=== PATIENT | female | born 1990 | race African-American/Black ===

== ENCOUNTER 2024-07-29 03:25 | Inpatient (IN) | payer OTHER ==
[2024-07-29] MEDS: ELECTROLYTE-148 SOLN 1,000 ML IV SCH (04:20)
[2024-07-29 04:57] LABS: BASO % 0.1 % (0-2.0); EOS % 5.4 % (0-4.5); HEMATOCRIT 35.9 % (32.4-45.2); HEMOGLOBIN 11.8 GM/dL (10.7-15.3); LYMPH % 14.6 % (8-40); MCHC 32.8 g/dl (32.0-36.0); MEAN CELL VOLUME 82.4 fl (80-96); MEAN PLT VOLUME 9.8 fl (7.5-11.1); MONO % 9.6 % (3.8-10.2); NEUT % 70.3 % (42.8-82.8); PLATELET COUNT 193 10^3/uL (134-434); RBC 4.36 M/mm3 (3.60-5.2); RDW 14.5 % (11.6-15.6); WHITE BLOOD COUNT 10.6 K/mm3 (4.0-10.0)
[2024-07-29 05:05] VITALS: BMI 25.0
[2024-07-29 05:11] LABS: INR 0.99 (0.83-1.09); POTASSIUM 3.7 mmol/L (3.5-5.1); PROTHROMBIN TIME (PATIENT) 10.8 SEC (9.7-13.0)
[2024-07-29 05:13] LABS: ACTIVATED PTT 29.8 SECONDS (25.2-36.5); BLOOD UREA NITROGEN 8.3 mg/dL (7-18); CALCIUM 8.9 mg/dL (8.5-10.1)
[2024-07-29 05:17] LABS: CREATININE 0.6 mg/dL (0.55-1.3)
[2024-07-29] MEDS ORDERED: FENTANYL/BUPIVACAINE/NS/PF - PCEA - 50 ML DISP.SYRIN EP ONE (07:14)
[2024-07-29 07:20] VITALS: RESP 18
[2024-07-29] MEDS ORDERED: BUPIVACAINE HCL/PF 0.25% (2.5MG/ML) 10 ML VIAL ONE (07:48)
[2024-07-29] MEDS: FENTANYL/BUPIVACAINE/NS/PF - PCEA - 50 ML DISP.SYRIN EP SCH (08:10)
[2024-07-29] MEDS ORDERED: NALOXONE HCL 0.4 MG/ML VIAL IVPUSH PRN (08:24)
[2024-07-29] MEDS ORDERED: OXYTOCIN 20 UNITS in 0.9% NS 20 UNIT/1,000 ML INFUS.BAG IV ONE ×2 (10:14→12:40)
[2024-07-29] MEDS ORDERED: BISACODYL 10 MG SUPP.RECT RC PRN (10:39)
[2024-07-29] MEDS ORDERED: oxyCODONE HCL 5 MG TABLET PO PRN (10:39)
[2024-07-29] MEDS ORDERED: ACETAMINOPHEN 325 MG TABLET (FP) PO PRN (10:39)
[2024-07-29] MEDS ORDERED: METHYLERGONOVINE MALEATE 0.2 MG/1 ML AMP IM PRN (10:39)
[2024-07-29 11:36] LABS: POC NITRAZINE POS
[2024-07-29] MEDS: IBUPROFEN 600 MG TABLET (FP) PO PRN (20:20)
[2024-07-29] MEDS: OXYTOCIN 20 UNITS in 0.9% NS 20 UNIT/1,000 ML INFUS.BAG IV SCH (20:22)
[2024-07-29] MEDS: BENZOCAINE 20% 57 GM BOTTLE TP PRN (21:14)
[2024-07-29] MEDS: WITCH HAZEL 50% (TUCKS) 40 PAD/JAR PAD TP PRN (21:14)
[2024-07-29] MEDS: BENZOCAINE 28 GM HEMORRHOIDAL OINTMENT TP PRN (21:15)
[2024-07-30 08:08] LABS: BASO % 0.2 % (0-2.0); EOS % 4.2 % (0-4.5); HEMATOCRIT 31.6 % (32.4-45.2); HEMOGLOBIN 10.1 GM/dL (10.7-15.3); LYMPH % 14.9 % (8-40); MCH 26.6 pg (25.7-33.7); MEAN CELL VOLUME 83.2 fl (80-96); MEAN PLT VOLUME 9.7 fl (7.5-11.1); NEUT % 70.7 % (42.8-82.8); PLATELET COUNT 177 10^3/uL (134-434); RDW 14.4 % (11.6-15.6); WHITE BLOOD COUNT 13.3 K/mm3 (4.0-10.0)
[2024-07-30] MEDS: PRENATAL VITAMINS W/ FOLIC ACID TABLET (FP) PO SCH (09:03)
[2024-07-30] MEDS ORDERED: SENNOSIDES/DOCUSATE COMBO (SENNA PLUS) TABLET (UD) PO PRN (22:00)
[2024-07-30] MEDS: HYDROCORTISONE 1% TOPICAL CREAM 30 GM TUBE TP PRN (22:35)
[2024-07-31 10:08] VITALS: BP 103/62; PULSE 84; TEMP 98
== END 2024-07-31 13:30 | disposition home or self-care (01) | DRG 560 ==
LOC: JDEL 03:25 → JLDR 03:55 → J3W 13:50
PROVIDERS: ADMIT Obstetrics & Gynecology; ATTEND Obstetrics & Gynecology
PROC: 0HQ9XZZ Repair Perineum Skin, External Approach (ICD-10-PCS; principal; 2024-07-29)
PROC: 10E0XZZ Delivery of Products of Conception, External Approach (ICD-10-PCS; 2024-07-29)
DX: O70.0 First degree perineal laceration during delivery (principal); Z3A.39 39 weeks gestation of pregnancy; Z37.0 Single live birth
CPT/HCPCS: 36415; 59025; 59409; 80048; 83986-QW; 85025; 85610; 85730; 86780; 86850; 86900; 86901